=== PATIENT | male | born 1940 | race Caucasian/White ===

== ENCOUNTER 2017-09-11 07:13 | Outpatient (CLI) | payer MEDICARE, BC ==
--- NOTE | 2017-09-11 12:37 | NM ---
RADIONUCLIDE GASTRIC EMPYTING SCAN: History: Functional dyspepsia, abdominal pain. FINDINGS: Early planar images show good mixing of contrast within the stomach. Half life emptying is calculated at 60 minutes. Calculated emptying is as follows: 3O minutes 10% emptying. 1 hours 56% emptying. 2 hours 100% emptying. IMPRESSION: Normal gastric emptying scan. No evidence of obstruction. POS: [facility]
== END 2017-09-11 07:14 | disposition home or self-care (01) ==
LOC: NM 07:13
PROVIDERS: ATTEND Internal Medicine Gastroenterology
DX: K30 Functional dyspepsia (principal)
CPT/HCPCS: 78264; A9541

== ENCOUNTER 2018-03-11 14:43 | Outpatient (CLI) | payer MEDICARE, BC ==
--- NOTE | 2018-03-11 16:18 | RAD ---
CHEST TWO VIEWS: 03/11/2018 PROVIDED CLINICAL HISTORY: Dyspnea. COMPARISON: 02/16/2016 FINDINGS: The cardiac and mediastinal silhouette are unchanged in appearance. The lungs are hyperinflated and hyperlucent, compatible with chronic obstructive disease. No focal consolidation, pleural fluid, or pneumothorax apparent. IMPRESSION: Stable radiographic appearance of the chest. POS: [facility]
== END 2018-03-11 14:44 | disposition home or self-care (01) ==
LOC: RAD 14:43
PROVIDERS: ATTEND Internal Medicine Pulmonary Disease
DX: R06.00 Dyspnea, unspecified (principal)
CPT/HCPCS: 71046

== ENCOUNTER 2018-05-22 09:59 | Outpatient (CLI) | payer MEDICARE, BC ==
--- NOTE | 2018-05-22 10:40 | CT ---
EXAM: CT Chest WO Con PROVIDED CLINICAL HISTORY: Pulmonary nodule COMPARISON: CT abdomen and pelvis [facility] 03/04/2018 FINDINGS: The heart, pericardium and great vessels are suboptimally evaluated in the absence of IV contrast mat erial. Vascular calcification including coronary calcium is demonstrated. There is no evidence for thoracic lymph node enlargement, with limitations due to lack of IV contrast . The lungs are free of significant opacity. The previously described left lower lobe parenchymal abnor mality is no longer evident. Minimal scarring changes with associated bronchiectasis noted involving the right middle lobe and lingula. No pleural fluid, pleural thickening or pneumothorax apparent. The visualized portions of the upper a bdomen demonstrate no significant interval change with respect to 03/04/2018. The osseous structures demonstrate no concerning osteoblastic or osteolytic lesions. IMPRESSION: 1. Interval resolution of the previously described left lower lobe parenchymal abnormality. 2. Chronic findings as above.
== END 2018-05-22 10:00 | disposition home or self-care (01) ==
LOC: BICCT 09:59
PROVIDERS: ATTEND Internal Medicine Pulmonary Disease
DX: R91.1 Solitary pulmonary nodule (principal); J47.9 Bronchiectasis, uncomplicated; I25.10 Atherosclerotic heart disease of native coronary artery without angina pectoris; J98.4 Other disorders of lung
CPT/HCPCS: 71250

== ENCOUNTER 2018-12-18 12:30 | Outpatient (CLI) | payer MEDICARE, BC ==
--- NOTE | 2018-12-18 12:44 | RAD ---
Exam: Chest 2 views HISTORY:Dyspnea Comparison: 03/11/2018 FINDINGS: Lungs: No masses or consolidation. Lungs are hyperinflated. Cardiac silhouette: Normal size. There is vascular calcification. Pulmonary vessels: Normal Pleural Spaces: Clear Pneumothorax: None Osseous abnormalities: None of acuity. IMPRESSION: COPD
== END 2018-12-18 12:31 | disposition home or self-care (01) ==
LOC: RAD 12:30
PROVIDERS: ATTEND Internal Medicine Pulmonary Disease
DX: R06.00 Dyspnea, unspecified (principal); J44.9 Chronic obstructive pulmonary disease, unspecified
CPT/HCPCS: 71046

== ENCOUNTER 2019-12-18 12:38 | Outpatient (CLI) | payer MEDICARE, BC ==
--- NOTE | 2019-12-18 13:27 | RAD ---
EXAM: Two views chest PROVIDED CLINICAL HISTORY: Shortness of breath COMPARISON: 12/18/2018 FINDINGS: Cardiac and mediastinal silhouette appears within normal limits. Lungs appear free of significant opa city. No pleural fluid or pneumothorax apparent. The lungs remain hyperinflated and hyperlucent compatible with chronic obstructive change. Healed fracture deformity of the right proximal humeral m etaphyseal region. IMPRESSION: No evidence for an acute cardiopulmonary process.
== END 2019-12-18 12:39 | disposition home or self-care (01) ==
LOC: BICRAD 12:38
PROVIDERS: ATTEND Internal Medicine Pulmonary Disease
DX: R06.00 Dyspnea, unspecified (principal)
CPT/HCPCS: 71046

== ENCOUNTER 2020-12-15 10:30 | Outpatient (CLI) | payer MEDICARE, BC | END 2020-12-15 10:31 | disposition home or self-care (01) | LOC: RAD 10:30 | PROVIDERS: ATTEND Internal Medicine Pulmonary Disease | DX: R06.00 Dyspnea, unspecified (principal); J98.4 Other disorders of lung | CPT/HCPCS: 71046 ==

== ENCOUNTER 2022-11-14 09:02 | Outpatient (CLI) | payer MEDICARE, BC | END 2022-11-14 09:03 | disposition home or self-care (01) | LOC: SCSMRI 09:02 | PROVIDERS: ATTEND Internal Medicine | DX: R41.3 Other amnesia (principal); I67.89 Other cerebrovascular disease | CPT/HCPCS: 70551 ==